=== PATIENT | male | born 1965 | race Caucasian/White ===

== ENCOUNTER → 2020-06-27 | Outpatient (CLI) | payer MEDICARE, OTHER ==
[~2020-06-27] MED LIST: ASPIRIN EC325 MG PO; CATAPRES0.2 MG PO; CYCLOBENZAPRINE10 MG PO; DICLOFENAC SOD100 GM TP; FLOMAX 0.4 MG0.4 MG PO; KLONOPIN0.5 MG PO; LEVOTHYROXINE75 MCG PO; LIPITOR TAB 2020 MG PO; LOVENOX40 MG/0.4 SQ; MELOXICAM7.5 MG PO; MORPHINE SULFAT30 M1 PO; NEURONTIN800 MG PO; NICODERM CQ1 EAC1 TD; OXYMORPHONE HCL15 MG PO; PERCOCET 10-321 EACH PO; PLAVIX 75 MG TA75 MG PO; POLYETHYLENE GL17 GM PO; PROTONIX 40 MG40 M1 PO; ROPINIROLE HCL1 MG PO; VANCOMYCIN1.25 GM/12 IV; VITAMIN C 500500 MG PO; VITAMIN D21250 MCG PO; VOLTAREN ARTHRI20 GM TOP; VOLTAREN100 GM TOP; ZANAFLEX 4 MG TA4 MG PO; ZOSYN 4.5 GM A4.5 GM INJ
== END ==
LOC: ECHO 13:24
DX: I11.9 Hypertensive heart disease without heart failure (principal)
CPT/HCPCS: ECHO; 93306

== ENCOUNTER 2020-08-08 07:19 | Observation (INO) | payer OTHER, MEDICARE ==
[~2020-08-08] VITALS: Ht 182.9 cm; Wt 122.9 kg
[~2020-08-08 07:19] MED LIST changes: -ASPIRIN EC325 MG PO; -CYCLOBENZAPRINE10 MG PO; -FLOMAX 0.4 MG0.4 MG PO; -KLONOPIN0.5 MG PO; -LOVENOX40 MG/0.4 SQ; -NICODERM CQ1 EAC1 TD; -POLYETHYLENE GL17 GM PO; -PROTONIX 40 MG40 M1 PO; -ROPINIROLE HCL1 MG PO; -VANCOMYCIN1.25 GM/12 IV; -VITAMIN C 500500 MG PO; -VITAMIN D21250 MCG PO; -VOLTAREN ARTHRI20 GM TOP; -VOLTAREN100 GM TOP; -ZANAFLEX 4 MG TA4 MG PO; -ZOSYN 4.5 GM A4.5 GM INJ
[2020-08-08 08:19] LABS: HEMOGLOBIN 14.7 gm/dl (14.0-17.5); RED BLOOD COUNT 4.84 M/UL (4.20-5.50)
[2020-08-08 08:41] LABS: BUN/CREATININE RATIO 14 (0-10)
[2020-08-08] MEDS ORDERED: PROTONIX 40 MG40 M1 PO (21:42)
[2020-08-08] MEDS ORDERED: VOLTAREN ARTHRI20 GM TOP (22:00)
[2020-08-09 08:12] LABS: BUN/CREATININE RATIO 15 (0-10)
[2020-08-09 08:16] LABS: HEMOGLOBIN 12.3 gm/dl (14.0-17.5); RED BLOOD COUNT 4.18 M/UL (4.20-5.50); WHITE BLOOD COUNT 15.7 K/UL (4.5-11.0)
[2020-08-10] MEDS ORDERED: ZOSYN 4.5 GM A4.5 GM INJ (12:25)
== END 2020-08-10 17:35 | disposition home or self-care (01) ==
LOC: OR 07:19 → MED SURG 4 19:04
PROVIDERS: Physician Assistant; Podiatrist Foot & Ankle Surgery; ADMIT Internal Medicine
DX: M21.171 Varus deformity, not elsewhere classified, right ankle (principal); M21.961 Unspecified acquired deformity of right lower leg; M62.461 Contracture of muscle, right lower leg; M20.41 Other hammer toe(s) (acquired), right foot; M86.8X7 Other osteomyelitis, ankle and foot; L97.319 Non-pressure chronic ulcer of right ankle with unspecified severity; I25.10 Atherosclerotic heart disease of native coronary artery without angina pectoris; E03.9 Hypothyroidism, unspecified; I10 Essential (primary) hypertension; J44.9 Chronic obstructive pulmonary disease, unspecified; F17.210 Nicotine dependence, cigarettes, uncomplicated; Z98.890 Other specified postprocedural states; Z95.5 Presence of coronary angioplasty implant and graft; Z86.73 Personal history of transient ischemic attack (TIA), and cerebral infarction without residual deficits; Z82.49 Family history of ischemic heart disease and other diseases of the circulatory system; Z88.2 Allergy status to sulfonamides; Z79.82 Long term (current) use of aspirin; Z79.02 Long term (current) use of antithrombotics/antiplatelets; Z79.899 Other long term (current) drug therapy
CPT/HCPCS: 36415; 73600; 73610; 76000; 80048; 80053; 85025; 85027; 96365; 96366; 96375; 96376; 97163; 97166; 97530; C1713; G0378; J0690; J1100; J1170; J2185; J2250; J2270; J2405; J2543; J2704; J2795; J3010; J3370; J7120; Q4133

== ENCOUNTER 2020-09-07 06:18 | Inpatient (IN) | payer OTHER, MEDICARE ==
[~2020-09-07] VITALS: Ht 182.9 cm; Wt 127.9 kg
[~2020-09-07 06:18] MED LIST changes: +PROTONIX 40 MG40 M1 PO; +VOLTAREN ARTHRI20 GM TOP; +ZOSYN 4.5 GM A4.5 GM INJ
[2020-09-07 07:02] LABS: HEMOGLOBIN 13.7 gm/dl (14.0-17.5); RED BLOOD COUNT 4.57 M/UL (4.20-5.50); WHITE BLOOD COUNT 8.9 K/UL (4.5-11.0)
[2020-09-07 07:16] LABS: BUN/CREATININE RATIO 15 (0-10)
[2020-09-07] MEDS ORDERED: ASPIRIN EC325 MG PO (09:44)
[2020-09-07] MEDS ORDERED: CYCLOBENZAPRINE10 MG PO (16:04)
[2020-09-07] MEDS ORDERED: VITAMIN C 500500 MG PO (16:05)
[2020-09-07] MEDS ORDERED: VOLTAREN100 GM TOP (16:10)
[2020-09-07] MEDS ORDERED: ROPINIROLE HCL1 MG PO (21:35)
[2020-09-07] MEDS ORDERED: ZANAFLEX 4 MG TA4 MG PO (21:36)
[2020-09-07] MEDS ORDERED: KLONOPIN0.5 MG PO (21:39)
[2020-09-08 04:46] LABS: RED BLOOD COUNT 3.72 M/UL (4.20-5.50)
[2020-09-09 04:50] LABS: HEMOGLOBIN 10.6 gm/dl (14.0-17.5); RED BLOOD COUNT 3.55 M/UL (4.20-5.50); WHITE BLOOD COUNT 9.8 K/UL (4.5-11.0)
[2020-09-09 05:08] LABS: BUN/CREATININE RATIO 13 (0-10)
--- NOTE | 2020-09-10 13:51 | NUR ---
CALLED AT 1345 FOR CLARIFICATION REGARDING PATIENTS DRESSING CHANGE. CALL WAS RETURNED BY NURSE AND FORWARDED ON TO NEW BUILDING WITH NO ANSWER. WILL CALL AGAIN.
--- NOTE | 2020-09-10 14:37 | NUR ---
CALLED DR JUNIOR CELL PHONE LEFT MESSAGE FOR CLARIFICTION ON DRESSING CHANGE ORDER.
[2020-09-11 05:13] LABS: HEMOGLOBIN 10.5 gm/dl (14.0-17.5); RED BLOOD COUNT 3.56 M/UL (4.20-5.50)
[2020-09-11 05:32] LABS: WHITE BLOOD COUNT 7.3 K/UL (4.5-11.0)
[2020-09-11 05:35] LABS: BUN/CREATININE RATIO 12 (0-10)
[2020-09-12 03:44] LABS: BUN/CREATININE RATIO 11 (0-10)
[2020-09-12] MEDS ORDERED: POLYETHYLENE GL17 GM PO (10:35)
[2020-09-12] MEDS ORDERED: NICODERM CQ1 EAC1 TD (10:35)
[2020-09-12] MEDS ORDERED: FLOMAX 0.4 MG0.4 MG PO (10:35)
[2020-09-12] MEDS ORDERED: VITAMIN D21250 MCG PO (10:35)
[2020-09-12] MEDS ORDERED: VANCOMYCIN1.25 GM/12 IV (10:35)
[2020-09-12] MEDS ORDERED: LOVENOX40 MG/0.4 SQ (10:35)
--- NOTE | 2020-09-12 13:15 | NUR ---
INSTRUCTED PATIENT AND ON IMPORTANCE OF WOUND CARE BID, HOME HEALTH ALREADY SET UP. PICC LINE CARE GIVEN. P.T. FOR NON WEIGHT BEARING. VANCO IV AND LOVENOX SCRIPTS GIVEN. VERBALIZED HAS BEEN GIVING LOVENOX AND CAN HOOK VANCO TO PICC LINE. CLAUDETTE GALVAN R.N.
== END 2020-09-12 16:40 | disposition home health service (06) | DRG 982 ==
LOC: OR 06:18 → MED SURG 4 06:18 → OR 07:45 → MED SURG 4 15:13 → OR 09-08 07:51 → MED SURG 4 09-08 07:52
PROVIDERS: Internal Medicine; Physician Assistant; Podiatrist Foot & Ankle Surgery; ADMIT Internal Medicine
PROC: 0SGH04Z Fusion of Right Tarsal Joint with Internal Fixation Device, Open Approach (ICD-10-PCS; 2020-09-07)
PROC: 0SP Lower Joints, Removal (ICD-10-PCS; 2020-09-07)
PROC: 0SPFX5Z Removal of External Fixation Device from Right Ankle Joint, External Approach (ICD-10-PCS; 2020-09-07)
PROC: 0SGF04Z Fusion of Right Ankle Joint with Internal Fixation Device, Open Approach (ICD-10-PCS; principal; 2020-09-07 09:15)
DX: K59.00 Constipation, unspecified (principal); Q60.0 Renal agenesis, unilateral; N17.9 Acute kidney failure, unspecified; R33.9 Retention of urine, unspecified; M21.6X1 Other acquired deformities of right foot; G57.31 Lesion of lateral popliteal nerve, right lower limb; M21.371 Foot drop, right foot; E11.621 Type 2 diabetes mellitus with foot ulcer; Z20.822 Contact with and (suspected) exposure to COVID-19; E78.2 Mixed hyperlipidemia; F17.210 Nicotine dependence, cigarettes, uncomplicated; I25.10 Atherosclerotic heart disease of native coronary artery without angina pectoris; I10 Essential (primary) hypertension; E66.9 Obesity, unspecified; E03.9 Hypothyroidism, unspecified; Z86.73 Personal history of transient ischemic attack (TIA), and cerebral infarction without residual deficits; Z88.2 Allergy status to sulfonamides; Z83.3 Family history of diabetes mellitus; Z82.49 Family history of ischemic heart disease and other diseases of the circulatory system; Z68.36 Body mass index [BMI] 36.0-36.9, adult
CPT/HCPCS: 36415; 73610; 76000; 80048; 80202; 85025; 85027; 85610; 85730; 96372; 96374; 96375; 96376; 97163; C1713; C1762; C1769; G0378; J0696; J1100; J1650; J1885; J2001; J2250; J2270; J2370; J2405; J2543; J2704; J2795; J3010; J3370; J7070; J7120; Q4133

== ENCOUNTER → 2020-09-20 | Outpatient (CLI) | payer OTHER, MEDICARE ==
[~2020-09-20] MED LIST changes: +ASPIRIN EC325 MG PO; +CYCLOBENZAPRINE10 MG PO; +FLOMAX 0.4 MG0.4 MG PO; +KLONOPIN0.5 MG PO; +LOVENOX40 MG/0.4 SQ; +NICODERM CQ1 EAC1 TD; +POLYETHYLENE GL17 GM PO; +ROPINIROLE HCL1 MG PO; +VANCOMYCIN1.25 GM/12 IV; +VITAMIN C 500500 MG PO; +VITAMIN D21250 MCG PO; +VOLTAREN100 GM TOP; +ZANAFLEX 4 MG TA4 MG PO
== END ==
LOC: KOH-I 10:01
DX: Z47.2 Encounter for removal of internal fixation device (principal); Z98.1 Arthrodesis status
CPT/HCPCS: 73610; J0690

== ENCOUNTER → 2020-10-04 | Outpatient (CLI) | payer OTHER, MEDICARE | LOC: KOH-I 09:45 | DX: M24.671 Ankylosis, right ankle (principal); M89.8X6 Other specified disorders of bone, lower leg; Z47.89 Encounter for other orthopedic aftercare | CPT/HCPCS: 73610 ==

== ENCOUNTER → 2020-10-22 | Outpatient (CLI) | payer OTHER, MEDICARE | LOC: KOH-I 11:14 | DX: M24.671 Ankylosis, right ankle (principal) | CPT/HCPCS: 73610 ==

== ENCOUNTER → 2020-10-22 | Outpatient (CLI) | payer OTHER, MEDICARE | LOC: OPSV 14:14 | DX: H66.90 Otitis media, unspecified, unspecified ear (principal); Z45.2 Encounter for adjustment and management of vascular access device | CPT/HCPCS: G0463 ==

== ENCOUNTER → 2020-12-10 | Outpatient (CLI) | payer OTHER, MEDICARE | LOC: KOH-I 15:28 | DX: M25.571 Pain in right ankle and joints of right foot (principal); Z98.1 Arthrodesis status; M25.871 Other specified joint disorders, right ankle and foot; R93.6 Abnormal findings on diagnostic imaging of limbs | CPT/HCPCS: 73610 ==

== ENCOUNTER → 2020-12-11 | Outpatient (CLI) | payer OTHER, MEDICARE | LOC: LBRF 11:25 | DX: L02.611 Cutaneous abscess of right foot (principal) | CPT/HCPCS: 87070; 87077; 87186; 87205 ==

== ENCOUNTER → 2021-01-01 | Outpatient (CLI) | payer OTHER, MEDICARE | LOC: KOH-I 10:03 | DX: S82.201A Unspecified fracture of shaft of right tibia, initial encounter for closed fracture (principal); S92.001A Unspecified fracture of right calcaneus, initial encounter for closed fracture; S92.101A Unspecified fracture of right talus, initial encounter for closed fracture | CPT/HCPCS: 73610 ==

== ENCOUNTER → 2021-02-07 | Outpatient (CLI) | payer OTHER, MEDICARE | LOC: KOH-I 10:31 | DX: M25.571 Pain in right ankle and joints of right foot (principal) | CPT/HCPCS: 73610 ==

== ENCOUNTER → 2021-05-30 | Outpatient (CLI) | payer MEDICARE | LOC: KOH-I 10:30 | DX: I82.402 Acute embolism and thrombosis of unspecified deep veins of left lower extremity (principal) | CPT/HCPCS: 93971 ==

== ENCOUNTER → 2021-08-06 | Outpatient (CLI) | payer OTHER, MEDICARE | LOC: KOH-I 08-05 13:00 → EMI 09:30 | DX: S91.301D Unspecified open wound, right foot, subsequent encounter (principal); M86.8X7 Other osteomyelitis, ankle and foot; M25.374 Other instability, right foot | CPT/HCPCS: 73718 ==

== ENCOUNTER → 2022-03-10 | Outpatient (CLI) | payer OTHER | LOC: KOH-I 15:01 | DX: M86.9 Osteomyelitis, unspecified (principal); L97.512 Non-pressure chronic ulcer of other part of right foot with fat layer exposed; L02.611 Cutaneous abscess of right foot | CPT/HCPCS: 73718 ==